=== PATIENT | female | born 1940 | race Caucasian/White ===

== ENCOUNTER 2019-09-27 05:37 | Emergency (ER) | payer MEDICARE, SELFPAY ==
--- NOTE | ~2019-09-27 | CT_ITS ---
EXAMINATION: CT facial bones wo con DATE: 09/27/2019 06:57 INDICATION: Head injury. TECHNIQUE: Computed tomography (CT) of the facial bones and maxillofacial region was performed withou t intravenous contrast. Automated exposure control and iterative reconstruction technique were employ ed. The dose-length product was 281.08 mGy-cm. COMPARISON: Head CT 10/11/2012 FINDINGS: There are likely changes of ocular lens replacement surgeries. There are fractures of the n rober bones and anterior nasal septum. There is mild mucosal thickening in the ethmoid sinuses. There is moderate cervical spondylosis. IMPRESSION: 1. Fractures of the nasal bones and anterior nasal septum. Reviewed, dictated and finalized at location A. [employer]
--- NOTE | ~2019-09-27 | CT_ITS ---
EXAMINATION: CT brain wo con DATE: 09/27/2019 06:57 INDICATION: Head injury. TECHNIQUE: Computed tomography (CT) of the head was performed without intravenous contrast. The mA wa s adjusted according to patient size. Iterative reconstruction technique was employed. The dose-lengt h product was 605.33 mGy-cm. COMPARISON: Head CT 11/08/2012 FINDINGS: There is no intracranial hemorrhage, acute infarction, or abnormal intracranial mass lesion . The ventricles are normal in size. There are likely changes of ocular lens replacement surgeries. T here is mild mucosal thickening in the ethmoid sinuses. The mastoid air cells are normal. IMPRESSION: 1. Normal brain. Reviewed, dictated and finalized at location A. [employer] IMPRESSION: 1. Normal brain.
[2019-09-27 05:40] VITALS: BP 135/88; PULSE 72; RESP 16; TEMP 36.9; O2SAT 100
--- NOTE | 2019-09-27 07:51 | ED.HEATRA ---
HPI - Head Injury General Chief complaint: Head Injury Stated complaint: fall, lac to face Time Seen by Provider: 09/27/19 06:13 Source: patient Mode of arrival: ambulatory Limitations: no limitations History of Present Illness HPI Narrative: Patient is a 78-year-old female who presents to the emergency department with complaint of fall and head injury. Patient missed a step this morning inside her home. She fell onto her face and struck her nose and forehead. She denies any loss of consciousness, nausea, vomiting, or neck pain. Patient does complain of pain and swelling to the nose and forehead. Patient reports getting a minor abrasion on her left elbow but denies any other extremity injuries. Patient is not taking any anticoagulants. MD Complaint: head injury and fall Onset (ago): hour(s) Mechanism of Injury: fall Place: home Loss of Consciousness: no Location of injury: frontal Related Data Allergies Allergy/AdvReac Type Severity Reaction Status Date / Time meperidine Allergy Mild CANT Verified 11/15/09 22:08 REMEMBER Penicillins Allergy Mild SOB Verified 11/15/09 22:08 Review of Systems Review of Systems: All systems reviewed & are unremarkable except as noted in HPI and below ENT: Reports nasal trauma Gastrointestinal: Gastrointestinal: Denies nausea and Denies vomiting Musculoskeletal: Musculoskeletal: Reports no additional musculoskeletal complaints PMFSH Past Medical History Medical History (Updated 09/27/19 @ 08:02 by Winnie Vasquez MD) Ileostomy in place Ovarian cancer Surgical History Surgical History (Updated 09/27/19 @ 07:56 by Winnie Vasquez MD) History of appendectomy History of cholecystectomy History of total knee replacement Social History Social History (Updated 09/27/19 @ 07:55 by Winnie Vasquez MD) Smoking status: Former smoker Comments Right percutaneous nephrostomy tube in place. Primary care physician/palliative care physician: Dr. Rodriguez at [facility] Exam Const: General: cooperative, no acute distress and alert Nutritional Appearance: well nourished Orientation/consciousness: patient oriented x3 Limitations: no limitations HENMT: General nose exam: Abnormal nasal septum present no septal hematoma and Epistaxis present bilaterally no active bleeding Face images: 1. Abrasion with surrounding swelling and ecchymosis 2. Swelling, ecchymosis, tenderness Mouth: Yes lip normal and Yes moist mucous membranes Resp: Effort & Inspection: normal respiratory effort Auscultation: clear to auscultation bilaterally Cardio: Rate: regular rate Rhythm: regular rhythm GI: GI Palp: Yes Soft to palpation and Yes Tenderness to palpation present (GI) (Mild diffuse) Auscultation: normal bowel sounds Skin: General skin exam: normal color Neuro: General: patient oriented x3 Cognition (Neuro): normal cognition Speech: normal speech Extrem: General: normal to inspection, full ROM and no clubbing, cyanosis or edema Psych: Mental Status: mental status grossly normal Affect: normal affect Attitude: cooperative Course Course Emergency Course: No acute findings intracranially. Patient with nasal fractures. Patient with facial abrasions, no repair needed. Discussed symptomatic management. Vital Signs Vital signs: Vital Signs Temperature 98.5 F 09/27/19 05:40 Pulse Rate 72 09/27/19 05:40 Respiratory Rate 16 09/27/19 05:40 Blood Pressure 135/88 09/27/19 05:40 Pulse Oximetry 100 09/27/19 05:40 Temperature 98.5 F 09/27/19 05:40 Pulse Rate 72 09/27/19 05:40 Respiratory Rate 16 09/27/19 05:40 Blood Pressure 135/88 09/27/19 05:40 Pulse Oximetry 100 09/27/19 05:40 MDM - Head Injury Imaging Data Radiologist's impression: ITS Impressions Head CT 09/27/19 06:59 IMPRESSION: 1. Normal brain. Face CT 09/27/19 07:00 IMPRESSION: 1. Fractures of the nasal bones and anterior nasal septum. Crit
[2019-09-27 08:35] VITALS: BP 113/72; PULSE 80; RESP 16; O2SAT 94
== END 2019-09-27 08:40 | disposition home or self-care (01) ==
PROVIDERS: Emergency Provider Emergency Medicine; PCP Internal Medicine
DX: S02.2XXA Fracture of nasal bones, initial encounter for closed fracture (principal); Z85.43 Personal history of malignant neoplasm of ovary; Z96.659 Presence of unspecified artificial knee joint; Z93.2 Ileostomy status; W10.9XXA Fall (on) (from) unspecified stairs and steps, initial encounter
CPT/HCPCS: 70450; 70486; 99284